=== PATIENT | female | born 1995 | race Caucasian/White ===

== ENCOUNTER 2017-06-03 14:36 | Inpatient (IN) ==
[2017-06-03] MEDS ORDERED: Ondansetron 4 MG/2 ML VIAL IVP PRN (15:08)
[2017-06-03] MEDS ORDERED: Metoclopramide 10 MG/2 ML VIAL IVP PRN (15:08)
[2017-06-03] MEDS ORDERED: Naloxone 0.4 MG/ML INJ IVP PRN (15:08)
[2017-06-03] MEDS ORDERED: Famotidine 20 MG/2 ML VIAL IVP PRN (15:08)
[2017-06-03] MEDS ORDERED: Ringers Solution, Lactated 1,000 ML ONE (15:13)
[2017-06-03] MEDS ORDERED: Ringers Solution, Lactated 1,000 ML IVC SCH (15:15)
[2017-06-03 15:19] LABS: Basophils % 0.1 %; Eosinophils # 0.1 K/mcL (0.0-0.6); Eosinophils % 0.6 %; Hematocrit 35.2 % (35.3-44.9); Hemoglobin 11.5 g/dL (11.5-15.4); Immature Granulocytes % 0.6 % (0-4); Lymphocytes # 1.9 K/mcL (0.6-4.6); Lymphocytes % 9.1 %; Mean Corpuscular HGB Conc 32.7 g/dL (31.6-35.5); Mean Corpuscular Hemoglobin 29.7 pg (28.0-33.3); Monocytes # 1.2 K/mcL (0.0-1.3); Monocytes % 5.8 %; Neutrophils # 17.3 K/mcL (1.6-8.9); Platelet Count 234 K/mcL (140-400); Red Blood Count 3.87 M/mcL (3.82-4.97); Red Cell Distribution Width 14.6 % (11.5-14.5); Segmented Neutrophils % 83.8 %
[2017-06-03] MEDS ORDERED: Oxytocin 20 units/ LR 1000 mL 20 UNIT/1,000 ML BAG IVC ONE (15:37)
--- NOTE | 2017-06-03 16:14 | OB/GYN Procedure Note ---
Delivery - Delivery Date: 06/03/17 Provider: Mary Bates Intrapartum events: precipitous labor- <3hr Delivery induction: none Delivery augmentation: rupture of membranes Delivery monitor: external FHT, external uterine Anesthesia: none Estimated Blood Loss: 100 - (s) A Delivery Date: 06/03/17 Infant Delivery Time: 15:45 Presentation: vertex Position: TYSON Route of delivery: Gender: Male Viability: Viable Pounds: 6 Ounces: 3 Weight Gram: 2.82 kg at 1 minute: 8 at 5 mins: 9 Shoulder Dystocia: not encountered Specimens collected: cord blood Placenta: spontaneous, uterine exploration Cord: 3 umbilical vessels - Repair Episiotomy: none Laceration Description: Labial (Right), Superficial - Complications Delivery complications: none Delivery comments: The patient was complete and pushing without anesthesia with a spontaneous vaginal delivery in the TYSON position of a vigorous male infant weighing 6 lbs. 3 oz. with Apgars of 8 at 1 minute and 9 at 5 minutes. Infant was placed on the maternal abdomen. The cord was clamped and cut after pulsations ceased. Cord blood was obtained. The placenta was delivered spontaneous and intact. Right labial laceration was hemostatic and not repaired. Estimated blood loss 100 mL, complications none - Disposition Mom disposition: stable in LDR Grant disposition: stable in LDR
--- NOTE | 2017-06-03 16:20 | OB/GYN History & Physical ---
Date of Encounter: 06/03/17 Time of Encounter: 16:18 Assessment and Plan (1) 39 weeks gestation of Current visit: Yes Status: Acute (2) Spontaneous onset of labor Current visit: Yes Status: Acute (3) Insufficient care in third trimester Current visit: Yes Status: Chronic (4) Limited care in third trimester Current visit: Yes Status: Chronic (5) Neutrophilic leukocytosis Current visit: Yes Status: Acute Low-grade temp, history of endometritis. Possibly related to sinusitis. Patient will be treated with Cleocin for 3 doses and reassessed at that time (6) Tobacco use affecting in third trimester, antepartum Current visit: Yes Status: Acute Smoking cessation information given (7) History of acute endometritis Current visit: Yes Status: Acute History of Present Illness Chief complaint: 39 wks , in labor HPI: Ms. Lara is a 21 year old female 2 para 1 with a late established EDC of 06/07/17 at 39 weeks and 3 days who presents with contractions starting this morning. She denies any vaginal bleeding or loss of fluid other than some show. Fetus has been active. She has received care from Dr. Falk starting at 33 weeks. Labs: blood type O+, rubella immune, varicella immune, GBS negative. She reports that she has had a productive cough and feels hot. She reports she is a smoker. She denies any complications with her last vaginal delivery at the time of delivery but had endometritis and had to be on antibiotics after delivery and after she went home she was restarted on antibiotics Past Med Surg Social Fam HX - Past Medical History Source: patient, old records reviewed Medical history: other (anemia) Psychiatric history: ADHD - Past Surgical History Surgical History: appendectomy, other (T+A) - Social History Smoking Status: Current every day smoker Packs per day: 0.5pack Smokeless Tobacco Status: No Alcohol use: none Drug use: none - Family History Mother Adopted: Mamou: Missygina Living Status: Still Living Hx Family Cardiac Disorders: No Hx Family Respiratory Disorders: No Hx Family Cancer: Yes (cervical) Hx Family GI Disorders: No Hx Family Genitourinary Disorders: No Hx Family Endocrine Disorder: No Hx Family Musculoskeletal Disorders: No Hx Family Neuromuscular Disorders: No Hx Family Neurologic Disorders: No Hx Family HEENT Disorders: No Hx Family Autoimmune Disorders: No Hx Family Reproductive Disorders: No Hx Family Psychosocial Disorders: No Hx Family Medical Disorders: No Obstetrical History - Pregnancies : 2 Para: 1 Term: 1 Livin Medications and Allergies Formula Tablet 06/03/17 [History] Allergies Amoxicillin Allergy (Verified 06/14/16 13:54) Hives Review of System OB All systems PM: reviewed and no additional remarkable complaints except as stated - Respiratory Respiratory: cough - Gastrointestinal Gastrointestinal: cramping Exam - Vital Signs Vital signs: T99.1, 118/65 VSS - Constitutional Constitutional: well developed, well nourished, no acute distress, average body habitus - HEENT HEENT: Normocephaly, Sinus Tenderness, Mucus Membranes Moist - Neck Neck exam: normal inspection, supple - Lungs Respiratory exam: CTAB - Cardiovascular Cardiovascular exam: RRR - Abdomen Abdomen: Present: bowel sounds normal, gravid, non tender - Extremities Extremities exam: normal inspection, warm - Vulva Vulva: bilateral: normal - Vagina Vagina: Present: normal moisture - Cervix Dilation: 8 Effacement: 90 Station: 0 (vtx) - Anus/Rectum Anus/Rectum: Present: normal perianal skin Results Result Diagrams: 06/03/17 15:10 Abnormal lab results WBC 20.7 K/mcL (4.3-11.1) H 06/03/17 15:10 Hct 35.2 % (35.3-44.9) L 06/03/17 15:10 RDW 14.6 % (11.5-14.5) H 06/03/17 15:10 Neutrophils # 17.3 K/mcL (1.6-8.9) H 06/03/17 15:10 All other labs normal. - VTE Reasons for not Prescribing Prophylaxis: Treatment not Indicated - Low risk for VTE
[2017-06-03] MEDS ORDERED: Lanolin 28 GM TUBE TP PRN (16:27)
[2017-06-03] MEDS ORDERED: Acetaminophen 325 MG TABLET PO PRN (16:27)
[2017-06-03] MEDS ORDERED: Ibuprofen 600 MG TABLET PO PRN (16:27)
[2017-06-03] MEDS ORDERED: Oxytocin 20 units/ LR 1000 mL 20 UNIT/1,000 ML BAG IVC SCH (16:27)
[2017-06-03] MEDS ORDERED: Benzocaine/Menthol 56 GM AEROSOL SPRAY TP PRN (16:27)
[2017-06-03] MEDS: Clindamycin 900 MG/50 ML 900 MG/50 ML IV.SOLN IVPB SCH (17:43)
[2017-06-03] MEDS: Nicotine 14 MG PATCH.TD24 TD SCH (20:26)
[2017-06-04] MEDS: Clindamycin 900 MG/50 ML 900 MG/50 ML IV.SOLN IVPB SCH ×2 (01:18→09:03)
[2017-06-04 06:09] LABS: Basophils # 0.1 K/mcL (0.0-0.2); Basophils % 0.3 %; Eosinophils # 0.3 K/mcL (0.0-0.6); Eosinophils % 1.3 %; Hematocrit 33.1 % (35.3-44.9); Hemoglobin 11.1 g/dL (11.5-15.4); Immature Granulocytes % 0.8 % (0-4); Lymphocytes # 3.2 K/mcL (0.6-4.6); Lymphocytes % 15.4 %; Mean Corpuscular HGB Conc 33.5 g/dL (31.6-35.5); Mean Corpuscular Hemoglobin 30.4 pg (28.0-33.3); Mean Corpuscular Volume 90.7 fL (83.0-100.0); Mean Platelet Volume 10.1 fL (9.4-12.4); Monocytes # 1.4 K/mcL (0.0-1.3); Monocytes % 6.7 %; Neutrophils # 15.5 K/mcL (1.6-8.9); Platelet Count 195 K/mcL (140-400); Red Blood Count 3.65 M/mcL (3.82-4.97); Red Cell Distribution Width 14.6 % (11.5-14.5); Segmented Neutrophils % 75.5 %
[2017-06-04 08:14] VITALS: BP 94/60
[2017-06-04] MEDS ORDERED: Prenatal Vit/FA 1 EACH TABLET PO SCH (09:00)
[2017-06-04] MEDS: Nicotine 14 MG PATCH.TD24 TD SCH (09:02)
--- NOTE | 2017-06-04 09:03 | Discharge Summary ---
Date of Encounter: 06/04/17 Time of Encounter: 09:01 - Discharge Diagnosis (1) Vaginal delivery Priority: Primary Status: Acute Comments: Continue routine care discharge home today - Discharge Medications Home Medications: Formula Tablet 06/03/17 [History] Allergies/Adverse Reactions: Allergies Amoxicillin Allergy (Verified 06/14/16 13:54) Hives Data Procedures and tests throughout hospitalization: Laboratory Tests 06/03/17 06/04/17 15:10 06:00 WBC 20.7 H 20.5 H RBC 3.87 3.65 L Hgb 11.5 11.1 L Hct 35.2 L 33.1 L MCV 91.0 90.7 MCH 29.7 30.4 MCHC 32.7 33.5 RDW 14.6 H 14.6 H Plt Count 234 195 MPV 10.0 10.1 Immature Gran % 0.6 0.8 Seg Neutrophils % 83.8 75.5 Lymphocytes % 9.1 15.4 Monocytes % 5.8 6.7 Eosinophils % 0.6 1.3 Basophils % 0.1 0.3 Neutrophils # 17.3 H 15.5 H Lymphocytes # 1.9 3.2 Monocytes # 1.2 1.4 H Eosinophils # 0.1 0.3 Basophils # 0.0 0.1 Labs on day of discharge: Labs from last 24 hours 06/04/17 06/03/17 06:00 15:10 WBC 20.5 H 20.7 H RBC 3.65 L 3.87 Hgb 11.1 L 11.5 Hct 33.1 L 35.2 L MCV 90.7 91.0 MCH 30.4 29.7 MCHC 33.5 32.7 RDW 14.6 H 14.6 H Plt Count 195 234 MPV 10.1 10.0 Immature Gran % 0.8 0.6 Seg Neutrophils % 75.5 83.8 Lymphocytes % 15.4 9.1 Monocytes % 6.7 5.8 Eosinophils % 1.3 0.6 Basophils % 0.3 0.1 Neutrophils # 15.5 H 17.3 H Lymphocytes # 3.2 1.9 Monocytes # 1.4 H 1.2 Eosinophils # 0.3 0.1 Basophils # 0.1 0.0 Date of admission: 06/03/17 14:50 Primary care physician: PCP NONE Consults: 06/03/17 16:27 Consult to Web Search Evaluator [CONS] Routine Comment: Vaginal delivery, consult needed Discharging clinician: Amanda Madsen Anticipated date of discharge: 06/04/17 - Patient Status Disposition: Home, Self-Care Condition: Good Functional capacity at discharge: independent ambulation - Discharge Instructions Follow Up With: NONE,PCP [Primary Care Provider] - Marilee Falk DO [Partnered Physician] - - Diet and Activity Activity: increase activity as tolerated Diet: regular diet Hospital Course Reason for admission: active labor Delivery: Episiotomy: none Other procedures: none complications: none Discharge diagnosis: IUP at term delivered [place] baby: male (bottle feeding) Time Attestation: Total time spent providing and/or coordinating discharge services: Time Spent: Less than 30 minutes Exam - Constitutional Vitals: Temp Pulse Resp BP Pulse Ox 97.7 F 73 14 94/60 98 06/04/17 08:12 06/04/17 08:12 06/04/17 08:12 06/04/17 08:12 06/04/17 08:12 General appearance IM: A&O X 3, pleasant, answers questions appropriately - Respiratory Respiratory exam: Present: CTAB - Cardiovascular Cardiovascular exam IM: Present: RRR, +S1, +S2 - GI/Abdominal GI/Abdominal exam IM: normal bowel sounds - Uterine Tone: Firm Uterus Position: 2 Fingers Below Umbilicus, Midline - Extremities Exam Extremities exam IM: Present: full ROM, normal capillary refill, normal inspection - Neurological Exam Neurological exam: alert, oriented X3, reflexes normal
== END 2017-06-04 16:00 | disposition home or self-care (01) | DRG 560 ==
LOC: 1NENULAB → OBSVTOIN 14:36 → 1NENUOBS 18:33
PROVIDERS: ADMIT Obstetrics & Gynecology; ATTEND Obstetrics & Gynecology